=== PATIENT | female | born 1955 | race Caucasian/White ===

== ENCOUNTER 2017-04-29 22:48 | Emergency (ER) | payer OTHER ==
--- NOTE | 2017-04-29 23:29 | EDPHY ---
H & P Stated Complaint: pt accidently took novalog 23u instead of her levemir tonight Time Seen by Provider: 04/29/17 22:57 HPI/ROS: HPI The patient presents with insulin overdose which occurred tonight. Her normal insulin regimen is to take Novolin before meals 3 times daily, usually 6-7 units and to take Levemir 23 units before bed. Tonight, before dinner at approximately 8:00 p.m. her blood glucose was 211, she took Novolin 8 units at this time. Then, before bed, her blood glucose was 223 and at approximately 10: 00 p.m. she took Humulin 23 units instead of Levemir on accident. She is visiting from out of town and had the bottles in her purse together. Recently, the manufacture has changed the bottle so that the 2 looks similar. She is feeling fine now, denies any symptoms. She has had some milk to drink REVIEW OF SYSTEMS Constitutional: No fever, no chills. Eyes: No discharge. ENT: No sore throat. Cardiovascular: No chest pain, no palpitations. Respiratory: No cough, no shortness of breath. Gastrointestinal: No abdominal pain, no vomiting. Genitourinary: No hematuria. Musculoskeletal: No back pain. Skin: No rashes. Neurological: No headache. PMHx: Type 1 diabetes, on insulin since 1984 Soc Hx: Visiting her daughter from [place] PHYSICAL General Appearance: Alert, no distress Eyes: Pupils equal and round no pallor or injection ENT, Mouth: Mucous membranes moist Respiratory: There are no retractions, lungs are clear to auscultation Cardiovascular: Regular rate and rhythm Gastrointestinal: Abdomen is soft and non-tender, no masses, bowel sounds normal Neurological: A&O, moves all extremities Skin: Warm and dry, no rashes Musculoskeletal: Neck is supple non tender Extremities: symmetrical, full range of motion Psychiatric: Patient is oriented X 3, there is no agitation Source: Patient Exam Limitations: No limitations - Personal History Current Tetanus Diphtheria and Acellular Pertussis (TDAP): Yes Tetanus Vaccine Date: 2009 - Medical/Surgical History Hx Asthma: No Hx Chronic Respiratory Disease: No Hx Diabetes: Yes Hx Cardiac Disease: No Hx Renal Disease: No Hx Cirrhosis: Yes Hx Alcoholism: No Hx HIV/AIDS: No Hx Splenectomy or Spleen Trauma: No Other PMH: diabetes, TBI from a fall, hypothyroid, HSV, auto immune stage 3 liver cirrhosis, high kidney lab values. appendectomy, foot surgery - Social History Smoking Status: Former smoker Constitutional: Initial Vital Signs Temperature (C) 36.5 C 04/29/17 23:02 Heart Rate 73 04/29/17 23:02 Respiratory Rate 18 04/29/17 23:02 Blood Pressure 152/94 H 04/29/17 23:02 O2 Sat (%) 98 04/29/17 23:02 O2 Delivery Mode Room Air Allergies/Adverse Reactions: cephalexin [From Keflex] Allergy (Verified 04/29/17 23:00) Penicillins Allergy (Verified 04/29/17 23:00) Home Medications: Medication Instructions Recorded Aricept 04/29/17 Levemir 04/29/17 Levothyroxine 04/29/17 Novolin R 04/29/17 Ramipril 04/29/17 SIMVASTATIN 04/29/17 Ursodiol 04/29/17 Valtrex 04/29/17 Medical Decision Making Differential Diagnosis: Assessment: This is a 61-year-old female with insulin-dependent diabetes managed with 2 types of insulin, accidentally took her intermediate acting Novolin before bed instead of her longer-acting Levemir. She is currently asymptomatic. Her physical exam is unremarkable. Differential diagnosis: Includes accidental insulin overdose, hypoglycemia, less likely hyperglycemia. Given that the onset of action for intermediate acting insulin is approximately 4 hours, we will monitor her in the emergency room to make sure she does not become hypoglycemic. We will give her food to eat and check her blood sugars frequently. Her initial blood glucose is normal. In the emergency department, the patient did have 1 episode of hypoglycemia with blood glucose of 30. She was given ongoing food and fluids by mouth for this. Repeat blood glucoses were all normal. We observed her for a total of 4 hours, and final blood glucose was in the 100s. She was able to eat and drink and felt well enough to go home. Given that she is visiting from out of town, I have recommended that she return to the emergency department if she is worse in any way. I have advised her to check her blood sugar 1 more time before she goes to bed. She is being discharged with her daughter who can keep an eye on her. - Data Points Laboratory Results: 04/30/17 00:50 POC Hgb 14.6 gm/dL gm/dL (12.6-16.3) POC Hct 43 % % (38-47) POC Sodium 143 mEq/L mEq/L (134-144) POC Potassium 3.4 mEq/L mEq/L (3.3-5.0) POC Chloride 105 mEq/L mEq/L (97-110) POC BUN 22 mg/dL mg/dL (7-23) POC Creatinine 0.9 mg/dL mg/dL (0.6-1.0) POC Glucose 30 mg/dL L* mg/dL (70-100) Point of Care Test Results: 04/30/17 00:50 POC Sodium 143 POC Potassium 3.4 POC Chloride 105 POC BUN 22 POC Creatinine 0.9 POC Glucose 30 L* Departure - Departure Disposition: Home, Routine, Self-Care Clinical Impression: Insulin overdose Qualifiers: Encounter type: initial encounter Injury intent: accidental or unintentional Qualified Code(s): T38.3X1A - Poisoning by insulin and oral hypoglycemic [ antidiabetic] drugs, accidental (unintentional), initial encounter Condition: Good Instructions: Insulin NPH (By injection) Additional Instructions: Please return to the emergency room if your worse in any way.
[2017-04-30 02:49] VITALS: BP 142/75; PULSE 66; RESP 18; TEMP 98.6; O2SAT 97
== END 2017-04-30 02:47 | disposition home or self-care (01) ==
DX: T38.3X1A Poisoning by insulin and oral hypoglycemic [antidiabetic] drugs, accidental (unintentional), initial encounter (principal); Z87.891 Personal history of nicotine dependence
CPT/HCPCS: 82947-QW